=== PATIENT | male | born 1995 | race Caucasian/White ===

== ENCOUNTER 2022-01-05 11:25 | Emergency (ER) | payer OTHER, SELFPAY ==
[2022-01-05 11:38] VITALS: BP 150/92; PULSE 53; RESP 18; TEMP 36.4; O2SAT 97; BMI 27.3
--- NOTE | 2022-01-05 14:32 | ED.EAR ---
HPI - Ear Problem General Chief complaint: Ear Problems Stated complaint: Earache/Jaw pain Time Seen by Provider: 01/05/22 14:00 Source: patient Mode of arrival: ambulatory Limitations: no limitations History of Present Illness HPI Narrative: patient presents emergency department for evaluation of left ear pain. Sudden onset this morning after waking up. At 1st it was mild but it had become severe throughout the morning. He took ibuprofen prior to arrival at 11:00 which did given some relief. However the pain continues, he feels as though his hearing is decreased. Denies any active drainage from the ear, no tinnitus. Denies fevers, chills, neck pain, neck stiffness, nasal congestion, sore throat, headache. He does states that last week he had a couple days of upper respiratory symptoms but that this has resolved. Related Data Previous Rx's Medication Instructions Recorded amoxicillin 875 mg-potassium 1 tab PO Q12H 7 days #14 tabs 01/05/22 clavulanate 125 mg tablet ibuprofen 600 mg tablet 600 mg PO Q8H PRN fever or pain 01/05/22 #30 tabs Allergies Allergy/AdvReac Type Severity Reaction Status Date / Time No Known Allergies Allergy Verified 01/05/22 11:41 Review of Systems Review of Systems: Constitutional: No weight loss, fever, chills, weakness or fatigue. Skin: No rash or itching. ENT: positive ear pain Cardiovascular: No chest pain, chest pressure or chest discomfort. No palpitations Respiratory: No shortness of breath, cough or sputum production. Gastrointestinal: No anorexia, nausea, vomiting or diarrhea. No abdominal pain . Genitourinary: No burning micturition. No urinary frequency or incontinence. Musculoskeletal: No muscle pain, back pain, joint pain or stiffness. Psychiatric: No depression or anxiety. Yes all other systems are reviewed and are negative [facility] Past Medical History Attestation statement: The following information was validated with the patient. Source: old records reviewed Social History Social History Advance Directives: No Advance Directives Information Provided: No Physical Exam Vital Signs: Vital Signs: Last Vital Signs Temp 97.6 F 01/05/22 11:38 Pulse 53 01/05/22 11:38 Resp 18 01/05/22 11:38 BP 150/92 H 01/05/22 11:38 Pulse Ox 97 01/05/22 11:38 O2 Del Method 01/05/22 11:38 BMI result Body Mass Index 27.3 Appearance: Alert.?Oriented to person, place and time. No acute distress.?Normal affect. Eyes: Pupils equal, round and reactive to light.? ENT: Pharynx normal.?? right TM normal. Left TM erythematous, bulging, intact Neck: Normal inspection.? Neck supple.?? CVS: Heart sounds normal. Normal heart rate and rhythm.? Pulses normal.?? Respiratory: No respiratory distress.? Lung sounds clear to auscultation bilaterally?? Abdomen: Soft and non-tender. Normoactive bowel sounds. Skin: Skin warm and dry.? Normal skin color.? Extremities: No lower extremity edema.? Neuro: Moves all extremities spontaneously. Sensation intact bilaterally. CN II-XII intact. No focal neuro deficits. Ambulates with normal steady gait. Course Course Course Narrative: patient is a 26 old male with no significant past medical history presenting to emergency department for evaluation of acute onset left ear pain. Upon physical exam not consistent with otitis externa, no tympanic membrane rupture. Significant erythema and bulging consistent with acute otitis media. Discussed plan of care for discharge home, oral antibiotics, follow-up with primary care provider. Avoidance of inserting anything into the ear canal including Q-tips or anything To clean the ear as this may increase the risk of rupture to the eardrum. reviewed worrisome signs and symptoms to return back to the emergency department for. MDM - Ear Medical Records Attestation: I reviewed the patient's medical records. Discharge Plan Discharge Clinical Impression: Otitis media Patient Disposition: Home, Self-Care Instructions: Ear Infection (ED) Additional Instructions: Complete the entire course of antibiotics as prescribed. Do not insert anything into the ear such as Q-tips to clean, do not go swimming, submerged her head under water in any way. You can take ibuprofen 200 mg, 3 tablets (600mg) every 6-8 hours as needed for pain, in addition to Tylenol 500 mg, 2 tablets (1,000mg) every 4-6 hours as needed for pain, but not to exceed 3 doses daily (3,000mg).? Follow-up with your primary care provider, return to emergency department with any new or worsening symptoms or concerns. Prescriptions: New amoxicillin-pot clavulanate 875-125 mg tablet 1 tab PO Q12H 7 Days Qty: 14 0RF ibuprofen 600 mg tablet 600 mg PO Q8H PRN (Reason: fever or pain) Qty: 30 0RF Interventions: ED Discharge Assessment Last Done: 01/05/22 14:44 Discharge Date/Time: 01/05/22 14:44
== END 2022-01-05 14:44 | disposition home or self-care (01) ==
PROVIDERS: Emergency Provider Emergency Medicine
DX: H66.92 Otitis media, unspecified, left ear (principal); H92.02 Otalgia, left ear
CPT/HCPCS: 99283